=== PATIENT | female | born 1945 | race Asian ===

== ENCOUNTER 2016-12-01 20:47 | Emergency (ER) | payer OTHER ==
[2016-12-02 01:27] VITALS: BP 118/75
== END 2016-12-02 01:27 | disposition home or self-care (01) ==
LOC: ED 20:47
DX: S00.03XA Contusion of scalp, initial encounter (principal); S60.212A Contusion of left wrist, initial encounter; I10 Essential (primary) hypertension; F03.90 Unspecified dementia, unspecified severity, without behavioral disturbance, psychotic disturbance, mood disturbance, and anxiety; Z79.899 Other long term (current) drug therapy; Y04.2XXA Assault by strike against or bumped into by another person, initial encounter; Y93.89 Activity, other specified; Y92.89 Other specified places as the place of occurrence of the external cause; Y99.8 Other external cause status